=== PATIENT | male | born 2000 | race Caucasian/White ===

== ENCOUNTER 2018-12-14 07:35 | Emergency (ER) | payer OTHER ==
[~2018-12-14] VITALS: Ht 193 cm; Wt 122.5 kg
== END 2018-12-14 09:10 | disposition home or self-care (01) ==
LOC: ER 07:35
DX: S63.257A Unspecified dislocation of left little finger, initial encounter (principal); X58.XXXA Exposure to other specified factors, initial encounter
CPT/HCPCS: 26770; 73140; 99283-25